=== PATIENT | female | born 1995 | race Caucasian/White ===

== ENCOUNTER 2017-09-23 05:31 | Inpatient (IN) ==
--- OUTSIDE RECORDS SUMMARY | 2017-09-23 06:13 | External Medical Summary | Clinical Summary ---
:1995 Author Organization [facility] Address [address] [address] Care Team Providers Name Role Phone Lizbet Oreilly Benson Primary Care Provider [facility] Unavailable Allergies Active Allergy Reactions Severity Noted Date Comments Latex Hives 08/09/2014 Latex Rash Low 06/25/2016 Tenino Hives 08/09/2014 Tenino Hives, Anxiety Medium 06/25/2016 Hydrocodone-Acetaminophen Hives 08/09/2014 Hydrocodone-Acetaminophen Nausea Only Low 06/25/2016 Other Hives 08/09/2014 Grapes/raisins Oxycodone Hives 08/09/2014 Penicillin V Hives 08/09/2014 Penicillins Nausea And Vomiting Low 06/25/2016 Oxycodone-Acetaminophen Hives 08/09/2014 Citrullus Vulgaris Hives 03/15/2015 Sertraline Hives 08/09/2014 Sertraline Hives, Anxiety Medium 06/25/2016 Current Medications Prescription Sig. Disp. Refills Start Date End Date Status levETIRAcetam (KEPPRA) Take 1,000 mg by Active 1000 MG mouth 2 (two) times tabletIndications: daily. Indications: Seizure Prophylaxis Prevention of following Subarachnoid Seizures After Bleed Hemorrhage in Brain multivitamin Take 1 tablet by Active ( PLUS) 27-1 MG mouth daily. TABSIndications: Indications: folic acid (FOLVITE) 1 Take 1 mg by mouth 08/22/2016 Active MG tabletIndications: daily. Indications: Vit-Fe Take 1 tablet by 08/22/2016 Active Rht-DW-Xibzd ( mouth daily. MULTI +DHA) [id number] Indications: MG CAPSIndications: polyethylene glycol Take 17 g by mouth 2 08/22/2016 Active (GLYCOLAX) (two) times daily. powderIndications: Indications: Constipation Constipation gabapentin (NEURONTIN) Take 100 mg by mouth 08/16/2016 Active 100 MG daily. Indications: capsuleIndications: Simple Seizure Partial Epilepsy levETIRAcetam (KEPPRA) 1,000 mg 2 (two) 06/29/2016 Active 1000 MG times daily. tabletIndications: Indications: Myoclonic Seizures Muscular Spasm or Twitch occurring with Seizures REFRESH PLUS 0.5 % 2 drops 2 (two) 08/19/2016 Active ophthalmic times daily as solutionIndications: Eye needed. Irritation Indications: Irritation of the Eye FLUoxetine (PROZAC) 20 Take 20 mg by mouth Active MG capsuleIndications: daily. Indications: Depression Depression Cholecalciferol (VITAMIN Take 1 capsule by Active D3) 2000 units mouth 2 (two) times CAPSIndications: Vitamin daily. Indications: D Deficiency Vitamin D Deficiency aspirin 81 MG chewable 10/04/2016 Active tablet Active Problems Patient Care Coordination Note GBS Negative Problem Noted Date premature rupture of membranes (PPROM) delivered, current 02/01/2017 hospitalization 01/23/2017 Epilepsy ([facility]) 01/23/2017 Overview: Radha, has seen Dr. Cervantes in the past during admit 06/2016 H/O pre-eclampsia in prior , currently , third trimester Overview: ASA 81 mg daily this H/O gestational diabetes in prior , currently , third 2016 trimester H/O delivery, currently , third trimester 01/23/2017 Overview: Per M notes, 37 wga, spontaneous labor, preeclampsia, used 17-OHP this --since d/c'd d/t local injection site reaction per [facility] Vaginal bleeding in , third trimester 01/23/2017 Seizure disorder during , first trimester ([facility]) 09/11/2016 Dysuria during in first trimester 09/11/2016 Hx of preeclampsia, prior , currently , first trimester 09/11 History of gestational diabetes in prior , currently , 2016 first trimester Seizure ([facility]) 06/25/2016 Bipolar 1 disorder ([facility]) 06/25/2016 Depression 01/28/2015 Bipolar 1 disorder ([facility]) 10/23/2014 Mood disorder ([facility]) 10/23/2014 premature rupture of membranes with onset of labor more than 24 hours following rupture Resolved Problems Problem Noted Date Resolved Date Self-inflicted injury 01/28/2015 01/31/2015 Suicide attempt ([facility]) 10/23/2014 10/26/2014 Intentional acetaminophen overdose, initial encounter ([facility]) 10/22/20142016 Immunizations Name Dates Previously Given Next Due Influenza IIV3 PFree 01/01/2017 Family History Medical History Relation Name Comments Premature Daughter Diabetes Father Hypertension Father Diabetes Maternal Grandfather Heart disease Maternal Grandfather Hypertension Maternal Grandfather Hypertension Maternal Grandmother Diabetes Mother Diabetes Paternal Grandfather Heart disease Paternal Grandfather Hypertension Paternal Grandfather Diabetes Paternal Grandmother Hypertension Paternal Grandmother Relation Name Status Comments Daughter Alive Father Alive Maternal Grandfather Maternal Grandmother Mother Alive Paternal Grandfather Paternal Grandmother Social History Tobacco Use Types Packs/Day Years Used Date Never Smoker Smokeless Tobacco: Never Used Alcohol Use Drinks/Week oz/Week Comments Yes 3 times/week Sex Assigned at Date Recorded Not on file Last Filed Vital Signs Vital Sign Reading Time Taken Blood Pressure 107/81 02/03/2017 7:48 AM [employer]ING ASS[employer]IATE Pulse 85 02/03/2017 7:48 AM [employer]OUNTING ASSOCIATE Temperature 36.6 C (97.9 F) 02/03/2017 7:48 AM ACCOUNTING ASSOCIATE Respiratory Rate 16 02/03/2017 7:48 AM ACCOUNTING ASSOCIATE Oxygen Saturation 100% 02/03/2017 7:48 AM ACCOUNTING ASSOCIATE Inhaled Oxygen Concentration - - Weight 86.6 kg (190 lb 14.4 oz) 01/26/2017 5:38 AM ACCOUNTING ASSOCIATE Height 165.1 cm (5' 5") 01/23/2017 4:45 AM ACCOUNTING ASSOCIATE Body Mass Index 31.77 01/26/2017 5:38 AM ACCOUNTING ASSOCIATE Plan of Treatment Health Maintenance Due Date Last Done Comments HPV Vaccines (1 of 3 - Female 3-dose series) 2008 Varicella Vaccines (1 of 2 - 2-dose adolescent series) 2010 MenB Vaccine (Bexsero) (1 of 2) 2013 DTaP,Tdap,and Td Vaccines (1 - Tdap) 2016 Influenza Vaccine (#1) 2017 01/01/2017 Results Not on filefrom Last 3 Months
[2017-09-23] MEDS ORDERED: SALINE FLUSH 10ml SYRINGE IVF PRN (06:23)
[2017-09-23] MEDS ORDERED: NS 1,000 ML IV ONE ×2 (06:24→08:33)
--- NOTE | 2017-09-23 06:27 | Emergency Department Report ---
General Adult HPI - General Chief complaint: Fall Stated complaint: GENERAL SICKNESS Source: patient, family Mode of arrival: ambulatory Limitations: no limitations - History of Present Illness HPI narrative: 22 F presents to the emergency department with a chief complaint of not feeling well over the past couple of days while at [place]. Patient is complaining of nausea, vomiting, diarrhea along with generalized abdominal cramping and feeling like she is going from hot to cold. Patient also notes that last night she got up in the middle of the night to go to the bathroom and tripped over her service dog causing her to fall and strike the back of her head on a cabinet. She notes a posterior headache which is moderate in nature without radiation. She did not have any loss of bowel or bladder control, did not bite her tongue, until was not postictal following the fall. The fall was caused by a tripping injury. No other complaints or associated symptoms. She was at home when her symptoms began. Symptoms have been persistent in nature since onset. She has been noncompliant with her Keppra and gabapentin for the past week at least. - Related Data Home Medications Medication Instructions Recorded Confirmed Gabapentin 300 mg PO BID 09/23/17 09/23/17 levETIRAcetam [Keppra] 1,500 mg PO BID 09/23/17 09/23/17 Allergies Allergy/AdvReac Type Severity Reaction Status Date / Time hydrocodone Allergy Mild HIVES Verified 09/23/17 05:41 latex Allergy Unknown ITCHING Unverified 09/23/17 05:41 lithium Allergy Unknown Verified 09/23/17 05:41 Penicillins Allergy Unknown Verified 09/23/17 05:41 sertraline Allergy Unknown Verified 09/23/17 05:41 Review of Systems Constitutional: Reports: fever (subjective. ), chills Eyes: Denies: eye pain, vision change ENT: Reports: throat pain. Denies: ear pain Cardiovascular: Denies: chest pain, palpitations Respiratory: Denies: cough, dyspnea Gastrointestinal: Reports: nausea, vomiting, diarrhea. Denies: abdominal pain Genitourinary: Denies: urgency, dysuria Musculoskeletal: Denies: back pain, arthralgia Integumentary: Denies: erythema, rash Neurological: Reports: headache. Denies: numbness, paresthesias Psychiatric: Denies: anxiety, depression Endocrine: Denies: fatigue, polydipsia, polyuria Hematological/Lymphatic: Denies: easy bruising, lymphadenopathy Allergic/Immunologic: Denies: facial swelling, urticaria PFSH Patient Stated Medical History Heart Murmur Yes Other Musculoskeletal Yes: CARPAL TUNNEL Surgical History: Appendectomy, tonsillectomy Family History: Reviewed and Noncontributory. - Social History Smoking status: Unknown if ever smoked Physical Exam - Limitations Limitations: no limitations - General General appearance: alert, in no apparent distress - Normal Exams: Head:: Normocephalic without trauma Eyes:: Pupils are PERRLA w/ EOMI, No scleral icterus, irritation, or foreign bodies noted ENMT:: No facial trauma, nasal exudates, pharyngeal erythema, or exudates are noted Dental: No fractured, loose, or missing teeth noted Neck:: Full range of motion (no midline tenderness or deformity of the cervical spine. No Brudzinski or Kernig signs.), without adenopathy, JVD, bruits or thyromegaly Chest/Respirations:: Clear all miranda, with good airflow, and symmetry bilaterally Cardiovascular:: Regular rate and rhythm, without murmur or gallop, Pulses 2+ all extremities, capillary refill, <2 seconds all extremities Abdomen:: Bowel sounds positive, soft, non-tender, non-distended, no hepatosplenomegaly, masses or bruits noted Lymphatic:: No lymphadenopathy, or lymphedema noted Musculoskeletal:: No tenderness (no midline tenderness or deformity of the cervical/thoracic/lumbar spine. Pelvis stable to compression and nontender. ), or deformity noted, good range of motion, all extremities Integumentary:: No rashes, hives, or bruising noted, hair and nails, without abnormality Neurological:: Patient is alert, and oriented, cranial nerves, motor/sensory/ cerebellar, exams w/o gross deficits, to observation Psychiatric:: Patient exhibits, appropriate attention, emotion and affect Course Vital Signs Temperature 100.4 F 09/23/17 05:37 Pulse Rate 118 H 09/23/17 05:37 Respiratory Rate 20 09/23/17 05:37 Blood Pressure 122/68 09/23/17 05:37 Pulse Oximetry 98 09/23/17 05:37 Temperature 99.3 F 09/23/17 08:37 Pulse Rate 98 09/23/17 08:37 Respiratory Rate 20 09/23/17 05:37 Blood Pressure 115/65 09/23/17 09:00 Pulse Oximetry 96 09/23/17 06:30 Medical Decision Making - MDM Narrative Medical decision making narrative: Labs/imaging were discussed in detail with the patient and family and questions are answered. Patient was given 2 L of normal saline intravenously in the emergency department. She was given acetaminophen 1 g by mouth 1 with improvement of symptoms. Patient was given Azactam 1 g IV 1 in the emergency department. Patient was discussed with Dr. Tanner who agrees to accept the patient to his service for further evaluation and treatment. Patient is in agreement with the current plan of management. She is admitted to the service of the hospitalist in improved condition. No further orders from accepting physician who is in agreement with the current plan of management. Azactam was ordered at 0855 when sepsis was considered. Patient was never hypotensive in the emergency department and her lactic acid was less than 4. Due to patient's ALLERGIES and seizure history there was difficulty selecting appropriate antibiotic which is safe for patient this required pharmacy consultation. - Differential Diagnosis UTI, PNA, Metabolic disorder, Viral syndrome - Lab Data Result diagrams: 09/23/17 06:53 09/23/17 06:53 Lab Results 09/23/17 09/23/17 09/23/17 Range/Units 06:35 06:35 06:53 WBC 11.0 (4.5-11.0) T/MM3 RBC 5.14 (4.00-5.20) M/MM3 Hgb 14.0 (12-16) GM/DL Hct 41.9 (36-46) % MCV 81.5 (80-100) UM3 MCH 27.2 (26-34) UUG MCHC 33.4 (31-37) GM/DL RDW Std Deviation 38.9 (36.9-50.2) FL Plt Count 187 (130-400) T/MM3 MPV 11.5 (9.4-12.4) UM3 Immature Gran % (Auto) 0.2 (0.0-0.5) % Neut % (Auto) 82.8 H (33-66) % Lymph % (Auto) 11.4 L (23-45) % Darke % (Auto) 5.1 (0-9.0) % Eos % (Auto) 0.4 (0-4) % Baso % (Auto) 0.1 (0-2) % Neut # (Auto) 9.2 H (1.8-7.7) T/MM3 Lymph # (Auto) 1.3 (1-4.8) T/MM3 Darke # (Auto) 0.6 (0-0.8) T/MM3 Eos # (Auto) 0.0 (0-0.5) T/MM3 Baso # (Auto) 0.0 (0-0.2) T/MM3 Abs Immat Gran (auto) 0.02 (0.00-0.03) T/MM3 Turbidity (0-20) Sodium (136-146) MEQ/L Potassium (3.6-5) MEQ/L Chloride (98-107) MEQ/L Carbon Dioxide (22-30) MEQ/L Anion Gap (5-15) meq/L BUN (7-17) MG/DL Creatinine (0.7-1.2) mg/dL GFR Calculation BUN/Creatinine Ratio (6-26) RATIO Glucose (65-110) MG/DL Calculated Osmolality (261-280) MOSM/KG Calcium (8.4-10.2) MG/DL Total Bilirubin (0.20-1.30) MG/DL Icterus Index (0-7) AST (14-36) U/L ALT (1-35) U/L Alkaline Phosphatase (38-126) U/L Total Protein (6.3-8.2) g/dL Albumin (3.5-5.0) g/dL Globulin (2.4-3.6) G/DL Albumin/Globulin Ratio (1.1-2.2) RATIO Lipase (23-300) U/L Plasma Lactate (0.6-2.2) MMOL/L Specimen Hemolysis (0-25) Ur Collection Type Urine, void-cc/notcc Urine Color Yellow (YELLOW) Urine Clarity Clear Urine pH 6.5 (5.0-8.0) Ur Specific Stephens 1.010 L (1.015-1.025) Urine Protein Negative (NEGATIVE) Urine Glucose (UA) Negative (NEGATIVE) Urine Ketones Negative (NEGATIVE) Urine Occult Blood 1+ A (NEGATIVE) Urine Nitrate Positive A (NEGATIVE) Urine Bilirubin Negative (NEGATIVE) Urine Urobilinogen 0.2 (NORMAL) EU/DL Ur Leukocyte Esterase Negative (NEGATIVE) Urine RBC None seen (0-3) /HPF Urine WBC 0-1 (0-5) /HPF Ur Squamous Epith Cells 5-10 Urine Bacteria 4+ H (NEGATIVE) Ur Culture Indicated? Cult reflexed &setup Urine Test Negative (Negative) 09/23/17 Range/Units 06:53 WBC (4.5-11.0) T/MM3 RBC (4.00-5.20) M/MM3 Hgb (12-16) GM/DL Hct (36-46) % MCV (80-100) UM3 MCH (26-34) UUG MCHC (31-37) GM/DL RDW Std Deviation (36.9-50.2) FL Plt Count (130-400) T/MM3 MPV (9.4-12.4) UM3 Immature Gran % (Auto) (0.0-0.5) % Neut % (Auto) (33-66) % Lymph % (Auto) (23-45) % Darke % (Auto) (0-9.0) % Eos % (Auto) (0-4) % Baso % (Auto) (0-2) % Neut # (Auto) (1.8-7.7) T/MM3 Lymph # (Auto) (1-4.8) T/MM3 Darke # (Auto) (0-0.8) T/MM3 Eos # (Auto) (0-0.5) T/MM3 Baso # (Auto) (0-0.2) T/MM3 Abs Immat Gran (auto) (0.00-0.03) T/MM3 Turbidity < 20 (0-20) Sodium 143 (136-146) MEQ/L Potassium 3.8 (3.6-5) MEQ/L Chloride 106 (98-107) MEQ/L Carbon Dioxide 27 (22-30) MEQ/L Anion Gap 10 (5-15) meq/L BUN 10.0 (7-17) MG/DL Creatinine 0.7 (0.7-1.2) mg/dL GFR Calculation 107 BUN/Creatinine Ratio 14 (6-26) RATIO Glucose 90 (65-110) MG/DL Calculated Osmolality 274 (261-280) MOSM/KG Calcium 8.9 (8.4-10.2) MG/DL Total Bilirubin 0.60 (0.20-1.30) MG/DL Icterus Index < 2 (0-7) AST 18 (14-36) U/L ALT 21 (1-35) U/L Alkaline Phosphatase 99 (38-126) U/L Total Protein 7.7 (6.3-8.2) g/dL Albumin 4.5 (3.5-5.0) g/dL Globulin 3.2 (2.4-3.6) G/DL Albumin/Globulin Ratio 1.4 (1.1-2.2) RATIO Lipase 73 (23-300) U/L Plasma Lactate 1.1 (0.6-2.2) MMOL/L Specimen Hemolysis < 15 (0-25) Ur Collection Type Urine Color (YELLOW) Urine Clarity Urine pH (5.0-8.0) Ur Specific Stephens (1.015-1.025) Urine Protein (NEGATIVE) Urine Glucose (UA) (NEGATIVE) Urine Ketones (NEGATIVE) Urine Occult Blood (NEGATIVE) Urine Nitrate (NEGATIVE) Urine Bilirubin (NEGATIVE) Urine Urobilinogen (NORMAL) EU/DL Ur Leukocyte Esterase (NEGATIVE) Urine RBC (0-3) /HPF Urine WBC (0-5) /HPF Ur Squamous Epith Cells Urine Bacteria (NEGATIVE) Ur Culture Indicated? Urine Test (Negative) - Radiology Data CXR - No acute processes. - EKG Data EKG #1 EKG results narrative: Sinus Tachycardia. 127 bpm. No STEMI. Disposition Clinical Impression: UTI (urinary tract infection) Qualifiers: Urinary tract infection type: acute cystitis Hematuria presence: without hematuria Qualified Code(s): N30.00 - Acute cystitis without hematuria Disposition: 02 To [facility] [place] Acute Care Condition: Improved Time of Disposition: 08:30 (Admit. Dr. Tanner.) - Seen By: physician
[2017-09-23] MEDS: ACETAMINOPHEN 500 MG TABLET PO SCH (06:33)
[2017-09-23] MEDS ORDERED: LEVETIRACETAM INJ 1,000 MG in NS 100 ML IV ONE (06:41)
--- NOTE | 2017-09-23 08:07 | XRay Report ---
Indication: fever, with seizures and tachycardia PROCEDURE: XR chest 1V: Encounter: Initial Comparison: None. Findings: Heart size is normal. The lungs are clear. There is no focal opacity to suggest atelectasis or pneumonia. No mediastinal or hilar adenopathy. No pleural effusion. There is no significant tortuosity of the descending thoracic aorta. There is no significant degenerative disc disease of the thoracic spine. IMPRESSION: No acute process. .
--- NOTE | 2017-09-23 08:22 | CT Scan Report ---
Indication: CHI, Fall PROCEDURE: CT head/brain wo con: Encounter: Initial Comparison: None Technique: Axial CT images through the head were performed without contrast. Iterative Reconstruction dose reducing technique was utilized. FINDINGS: The ventricles are of normal size, shape, and contour for the patient's age. The brainstem, cerebellum, and cerebral hemispheres have a normal morphology and CT attenuation. There is no evidence of midline displacement. No hemorrhage, signs of acute territorial stroke, mass effect, mass lesions, or edema is evident. The visualized portions of the skull base, midface, and calvarium demonstrate no abnormality. The paranasal sinuses are well aerated and free of significant disease. The tympanic and mastoid cavities appear normal. IMPRESSION: No acute intracranial abnormality or hemorrhage. .
[2017-09-23] MEDS ORDERED: AZTREONAM 1 G in NS 100 ML IV ONE (08:45)
[2017-09-23 09:31] VITALS: BMI 35.9
[2017-09-23] MEDS ORDERED: HYDROMORPHONE 2 MG/ML INJECTION IVP PRN (09:36)
[2017-09-23] MEDS ORDERED: ONDANSETRON 4 MG/2 ML INJECTION IVP PRN (09:36)
--- NOTE | 2017-09-23 10:15 | History & Physical Report ---
History of Present Illness Date: 09/23/17 (PCP: None) Chief complaint: Seizure, Fever, Abdominal pain HPI: - History of Present Illness-ED: HPI narrative: 22 F presents to the emergency department with a chief complaint of not feeling well over the past couple of days while at [place]. Patient is complaining of nausea, vomiting, diarrhea along with generalized abdominal cramping and feeling like she is going from hot to cold. Patient also notes that last night she got up in the middle of the night to go to the bathroom and tripped over her service dog causing her to fall and strike the back of her head on a cabinet. She notes a posterior headache which is moderate in nature without radiation. She did not have any loss of bowel or bladder control, did not bite her tongue, until was not postictal following the fall. The fall was caused by a tripping injury. No other complaints or associated symptoms. She was at home when her symptoms began. Symptoms have been persistent in nature since onset. She has been noncompliant with her Keppra and gabapentin for the past week at least. Hospitalist HPI: Jana is a pleasant 22 yo female who presents to the ED today with above mentioned complaints. She is somnolent upon my arrival to the room, and was noted to have O2 sats of 89% on RA. She did easily awaken and was able to give a fairly accurate history. She has a history of seizures, onset about 2 years ago when with her first child. She reports that she fell down the stairs when . Her water did break early @ 28 weeks, and she had to be hospitalized until she delivered @ 34 weeks. She has previously been on Dilantin, but that was changed to Keppra when she was found to be . She reports that she does not feel that she is tolerating the Keppra well. She has persistent ELLISON, so she has opted not to take the Keppra x the last 2 weeks. She has been seeing Dr. Naidu for neurology in the [facility] area, but has recently moved to [place] and needs to establish with a neurologist here. CT done in the ER was found to be negative. Incidentally, she does report some issues with her c-spine. She has bilateral hand numbness, and is to wear a back brace and arm braces at home. She states she may need surgery at some point. She is unclear what area of neck/ back is affected. In other concerns, she reports RUQ pain with radiation into her back. She was found to have a fever, with concern for developing sepsis upon her admission in the ER. She reports history of urethral stricture and both she and her family report that she has verbalized feeling as if she cannot urinate well for several weeks. In addition, she frequently has symptoms a UTI, urinary frequency , and feelings of incomplete emptying. She has been nauseated, and reports epigastric pain and GI upset when taking PO. States she has not eaten in 2 days due to these c/o. While in the ER she remains fairly hypotensive despite fluid boluses. HR is 115- 120. ER nurse reports patient was quite hypertensive with HR into the 140-160 range upon admission. D/W RN. D/W Dr. Valencia. D/W Dr. Tanner. Due to patients borderline hemodynamic status, she is being admitted to ICU for closer observation and treatment. Review of Systems All systems PM: 10-point ROS was reviewed, no additional remarkable complaints except - Constitutional Constitutional: Present: chills, fatigue, fever(s), headache(s), lethargy, malaise, weakness - Cardiovascular Cardiovascular: Present: heart murmur. Absent: chest pain, dyspnea on exertion , orthopnea Vascular: Absent: pedal edema, unilateral swelling - Respiratory Respiratory: Absent: cough, dyspnea, dyspnea on exertion - Gastrointestinal Gastrointestinal: Present: abdominal pain, change in bowel habits, diarrhea, dyspepsia, early satiety, nausea - Genitourinary Menstruation: currently menstrual Genitourinary Comments: IUD in place- would like removed. She is worried it has moved. - Musculoskeletal Musculoskeletal: Present: back pain (Right flank pain), myalgias - Neurological Neurological: Present: convulsions, headache(s), lack of coordination, paresthesias (Bilateral hands, worse at night. 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 Asthma. ADD with drug OD. Gastritis. Urinary rentention ( [place]). -Chronic Trigonitis. -Urethral Stenosis. -Mild-mod Bladder Trabeculation. Possible cervical spine stenosis Surgical History: Appendectomy, tonsillectomy, Urological surgery (as above) Family History: DM2 Family History: As Above - Social History Smoking status: Never smoker Substance use type: unknown Household members: spouse, children (ages 18 mo and 7 mo) Current residence: Apartment/Private Home Medications Home Medications Medication Instructions Recorded Confirmed Type Gabapentin 300 mg PO BID 09/23/17 09/23/17 History levETIRAcetam [Keppra] 1,500 mg PO BID 09/23/17 09/23/17 History Allergies Allergy/AdvReac Type Severity Reaction Status Date / Time hydrocodone Allergy Mild HIVES Verified 09/23/17 05:41 latex Allergy Unknown ITCHING Unverified 09/23/17 05:41 lithium Allergy Unknown Verified 09/23/17 05:41 Penicillins Allergy Unknown Verified 09/23/17 05:41 sertraline Allergy Unknown Verified 09/23/17 05:41 Exam Vital Signs: Temperature 99.3 F 09/23/17 08:37 Pulse Rate 98 09/23/17 08:37 Respiratory Rate 20 09/23/17 05:37 Blood Pressure 115/65 09/23/17 09:00 Pulse Oximetry 96 09/23/17 06:30 Telemetry Rhythm: Sinus Tachycardia Height/Weight/BMI: Height 1.65 m Weight 97.8 kg Body Mass Index 35.9 - Constitutional Present: cooperative, somnolent - Routine HEENT Exam Head: Present: normocephalic, atraumatic Eye: Present: PERRL ENT: Present: mucous membranes dry Comments: Mild dysconjugate gaze when relaxed. - Routine Neck Exam Present: supple, trachea midline. Absent: JVD, swelling - Routine Chest/Breast/Axilla Exam Chest wall: Absent: tenderness - Routine Respiratory Exam Present: CTA bilaterally. Absent: accessory muscle use, dyspnea, rales, respiratory distress, rhonchi, wheezes - Routine Cardiovascular Exam Present: RRR, S1, S2, no murmur, tachycardia - Routine Abdominal Exam Present: soft, tenderness (RUQ), non distended. Absent: firm, rigid, mass - Routine Exam Comments: Right CVA tenderness to touch. - Routine Extremities Exam Present: no edema, non tender - Routine Skin Exam Present: intact, dry, warm - Routine Neurological Exam Present: moving all extremities. Absent: sensory deficit, motor deficit, facial asymmetry - Routine Psychiatric Exam Present: cooperative Results - Labs CBC & Chem 7: 09/23/17 06:53 09/23/17 06:53 Microbiology Results: Microbiology 09/23/17 07:10 Peripheral/Iv Start Gram Stain - Final Not performed 09/23/17 06:54 Peripheral/Iv Start Gram Stain - Final Not performed 09/23/17 06:35 Urine, Voided (Cc/notcc) Urine Culture - Preliminary Culture Initiated - Results Pending - Imaging and Cardiology Chest x-ray Additional comments: Negative. CT scan - head Additional comments: Normal Assessment and Plan Assessment and Plan: 22 yo WF with: 1. Severe sepsis 2. Presumed pyelonephritis 3. Hx of urinary retention with ureteral stricture 4. Sz. DO with poor medication compliance 5. Persistent ELLISON 6. Epigastric pain with h/o gastritis 7. Possible C-Spine stenosis Plan: Will admit Inpatient, ICU as expected stay is to exceed 2 midnights. Supportive care per sepsis guidelines- use LR to reduce risk of metabolic acidosis. Repeat lactate this afternoon. Use Azactam due to PCN allergy. Avoid Quinolone due to active sz. BC, UC pending. Will consult Dr. Villegas to R/O urinary retention. Check CT A/P. Check bladder scan, cath if needed. Suspect urinary retention may be cause of recurrent UTI and subsequent pyelonephritis. PRN pain medication. PRN antiemetics. Continue Keppra for now- resume Keppra and Gabapentin. She was loaded with 1000 mg of Keppra in the ER. Consult Dr. Mason to establish care and possible adjust sz. meds due to ELLISON with Keppra. I D/W him. PRN pain meds for ELLISON right now. Pt is somnolent, likely postictal, but will check UDS due to past hx of drug OD. Will add PPI due to epigastric discomfort, GI upset. Diet as tolerated. Hx of C-spine stenosis- we may need to consider C-spine imaging, but she currently not having any focal weakness or new symptoms, so will monitor for now. She reports she has IUD in, which she would like removed. Outpatient referral to [facility] upon discharge. GI px: LMWH Code Status: Full DVT Prophylaxis: Lovenox GI Prophylaxis: Protonix Resuscitation Status: Full Code - Physician Narrative Physician: Andres Tanner MD Narrative: Date: 09/23/17 Time: 958 I have independently interviewed and examined patient at bedside. Patient chart reviewed. Case discussed with my WHE[employer] P[employer] INSPECTOR. Care plan developed with my supervision, agree with above. A pleasant 22-year-old female patient presented to emergency room with history of seizures diagnosed 2 years ago during , prescribed to be on Keppra medication however has been off Keppra medication for the past 2 weeks, with complaints of fever, abdominal pain, chills. Symptoms associated with nausea, vomiting. Patient reports bilateral flank pain, more on the right side along with generalized abdominal pain. Patient also has a history of urethral stricture with reported history of inability to void satisfactorily over the past few weeks. Urinalysis performed in the emergency room concerning for UTI. Culture and sensitivity results awaited. Patient was tachycardic, hypotensive in the emergency room and will be admitted to ICU for further close monitoring. Physical exam: General: Drowsy, easily arousable, oriented x3. In moderate painful distress. Head: Pupils equal, round, reactive to light and accommodation. Extraocular movements intact. Neck: No elevation in JVP. No pharyngeal erythema noted. Chest: The patient does not use accessory muscles for breathing. Lungs: Breath sounds audible on auscultation bilateral lung miranda. No wheezing , no rhonchi, no crepitations, no crackles. No pleural rub. CVS: S1, S2 heard on auscultation. Tachycardic. No murmur, no S3/S4 gallops. Abdomen: Soft, tenderness to palpation noted in the epigastrium, right upper quadrant. No rebound, no guarding. Bowel sounds appreciated on auscultation. : Positive right-sided flank tenderness. Skin: No rashes, no induration, no erythema. Capillary refill less than 4 seconds. Extremities: No evidence of pedal edema bilateral lower extremities. No calf tenderness bilaterally. Palpable dorsalis pedis and posterior tibial pulses bilateral lower extremities. Data: WBC count 11,000, with left shift. Lactic acid 1.11.5. Urinalysis positive nitrites, 4+ bacteria, urine test negative. Urine culture results awaited. Urine toxicology screen negative. CT scan of abdomen and pelvis without contrast Impression:No evidence for infectious or inflammatory process. No evidence for mass lesion or adenopathy. No nephrolithiasis or evidence for obstructing ureteral calculus. No evidence for obstruction or free air. Assessment: Severe sepsis, likely secondary to urinary tract infection. History of seizures, off Keppra medication for the past 2 weeks. History of urethral stricture with urinary retention. Intermittent headache. Plan: Patient admitted to ICU under hospitalist service. Neurology consulted, case discussed with Dr. Mason and recommendation for patient to be on Keppra 500 mg twice a day for the next 2 days and thereafter increased to 1000 mg twice a day on discharge. Dr. Mason wants to follow up patient in 2 weeks after discharge. Urologist, Dr. Villegas will be consulted. CT scan abdomen and pelvis without contrast does not show any evidence suggestive of pyelonephritis. Continue IV aztreonam, considering patient's allergy profile. Awaiting blood culture, urine culture results. Sepsis Assessment - Evaluation SIRS Criteria: temperature > 100.9, pulse > 90 beats/minute Severe Sepsis: hypotension (SBP <90 or MAP <65 x2 readings) Hospital Course Summary Disclaimer: The visit summary below is not to be considered part of the above Progress Note. Hospital Course: 22 yo WF with: 1. Severe sepsis 2. Presumed pyelonephritis 3. Hx of urinary retention with ureteral stricture 4. Sz. DO with poor medication compliance 5. Persistent ELLISON 6. Epigastric pain with h/o gastritis 7. Possible C-Spine stenosis Plan: Will admit Inpatient, ICU as expected stay is to exceed 2 midnights. Supportive care per sepsis guidelines- use LR to reduce risk of metabolic acidosis. Repeat lactate this afternoon. Use Azactam due to PCN allergy. Avoid Quinolone due to active sz. BC, UC pending. Will consult Dr. Villegas to R/O urinary retention. Check CT A/P. Check bladder scan, cath if needed. Suspect urinary retention may be cause of recurrent UTI and subsequent pyelonephritis. PRN pain medication. PRN antiemetics. Continue Keppra for now- resume Keppra and Gabapentin. She was loaded with 1000 mg of Keppra in the ER. Consult Dr. Mason to establish care and possible adjust sz. meds due to ELLISON with Keppra. I D/W him. PRN pain meds for ELLISON right now. Pt is somnolent, likely postictal, but will check UDS due to past hx of drug OD. Will add PPI due to epigastric discomfort, GI upset. Diet as tolerated. Hx of C-spine stenosis- we may need to consider C-spine imaging, but she currently not having any focal weakness or new symptoms, so will monitor for now. She reports she has IUD in, which she would like removed. Outpatient referral to [facility] upon discharge. GI px: LMWH Code Status: Full
--- NOTE | 2017-09-23 10:40 | CT Scan Report ---
Indication: pyelonephritis PROCEDURE: CT abdomen pelvis wo con: Encounter: Initial Comparison: None. Findings: The included portions of the lung bases are clear. Heart size normal. No pleural effusion. No pericardial effusion. Liver is homogeneous and normal in contour. Spleen is normal in size. Adrenal glands are normal. Kidneys are symmetric in size without hydronephrosis or perinephric collection. No definite obstructing ureteral calculus. Gallbladder is thin-walled and nondistended without definite stones. Pancreas is homogeneous and uniform in density. Abdominal aorta is nonaneurysmal. No retroperitoneal or mesenteric adenopathy. No bowel distention or bowel wall thickening. Pelvis: No definite distal ureteral obstructing calculus. A normal appendix is not identified with certainty. The uterus is retroverted and tilted slightly to the left. No definite adnexal abnormality. No free fluid or pelvic sidewall adenopathy. There is mild distal colonic diverticulosis without evidence of diverticulitis. Impression:No evidence for infectious or inflammatory process. No evidence for mass lesion or adenopathy. No nephrolithiasis or evidence for obstructing ureteral calculus. No evidence for obstruction or free air. .
[2017-09-23] MEDS: ENOXAPARIN 40 MG/0.4 ML INJECTION SQ SCH (10:41)
[2017-09-23] MEDS: LR 1,000 ML IV SCH ×2 (10:41→19:04)
[2017-09-23] MEDS: PANTOPRAZOLE 40 MG INJECTION IVP SCH (10:42)
[2017-09-23] MEDS: ACETAMINOPHEN 325 MG TABLET PO PRN ×2 (12:21→17:24)
--- NOTE | 2017-09-23 14:28 | Consultation ---
DATE OF CONSULTATION 09/23/[address] Tanner PATIENT'S CHIEF COMPLAINT Seizure. HISTORY OF PRESENT ILLNESS Patient is a 22-year-old female with history of seizure disorder for the past two years. The patient has been taking Keppra 1500 mg p.o. b.i.d. for her seizures. It has been well controlled until recently. Patient presented to [facility] earlier this morning with an episode of seizure-like activity during which she became unresponsive with staring gaze and little shivering movements. Patient was feeling sick overnight. She was having some shivering problem and cold sweat which was later found to be related to a UTI. Patient said that she was walking in the dark and she tripped over her dog and fell to the ground. She became unresponsive for a few seconds. She then felt weak all over and she was asking for help. She was found by her grandfather, slightly confused and having some staring problem. She was then brought to the emergency room and was admitted to the hospital. She had a CT of the head on admission that showed no acute abnormalities. Her lab work revealed evidence of UTI and she has been treated for that since then. The patient's condition has been improving since admission. She had no new seizures and no loss of consciousness or confusion. She has had no focal weakness or numbness. The patient said that she ran out of her Keppra about two weeks ago and she was not having any problem with that. Patient's seizure disorder started two years ago with her having a general generalized tonic-clonic type seizure activity. She was initially given Dilantin and this was later changed to Keppra due to . The patient reports having some mild fatigue and drowsiness on the Keppra. Her dosage was increased to 1500 mg p.o. b.i.d. to improve control. PHYSICAL EXAMINATION On physical examination the patient was awake, alert, oriented x3. Pupils were round, reactive and equal. Extraocular muscles were intact. Visual field was full. Speech was fluent. Motor examination was 5-/5. Sensory examination was symmetrical to light touch and pinprick. Deep tendon reflexes were 2-/4. Plantar reflexes were in flexion bilaterally. Coordination for [id number] was normal bilaterally. ASSESSMENT Complex partial seizure controlled with Keppra. PLAN 1. Restart Keppra at 500 mg p.o. b.i.d. for a couple of days, then increase it to 1000 mg p.o. b.i.d. to improve tolerance. This can be increased further up to 1500 mg p.o. b.i.d. if needed for seizure control. 2. Improve fluid intake and continue treatment for the UTI until symptoms are relieved. 3. Patient can follow up with Dr. Mason in 2-3 weeks for further treatment for of her seizure problem. MTDD
[2017-09-23] MEDS: AZTREONAM 1 G in NS 100 ML IV SCH ×2 (15:04→20:31)
[2017-09-23] MEDS: Oxycodone/Acetaminophen 5/325 1 TAB PO PRN ×2 (16:31→20:32)
[2017-09-23] MEDS: GABAPENTIN 300 MG CAPSULE PO SCH (20:32)
[2017-09-23] MEDS: LEVETIRACETAM 500 MG TABLET PO SCH (20:33)
[2017-09-23] MEDS ORDERED: LEVETIRACETAM 500 MG TABLET PO SCH (21:00)
[2017-09-24] MEDS: ACETAMINOPHEN 325 MG TABLET PO PRN ×2 (00:22→13:58)
[2017-09-24] MEDS: LR 1,000 ML IV SCH ×2 (02:35→16:29)
[2017-09-24] MEDS: AZTREONAM 1 G in NS 100 ML IV SCH ×4 (02:36→21:47)
[2017-09-24] MEDS: IBUPROFEN 600 MG TABLET PO PRN ×2 (06:10→16:18)
[2017-09-24] MEDS: ACETAMINOPHEN 500 MG TABLET PO SCH (06:17)
[2017-09-24] MEDS: ENOXAPARIN 40 MG/0.4 ML INJECTION SQ SCH ×3 (08:35→12:26)
[2017-09-24] MEDS: PANTOPRAZOLE 40 MG INJECTION IVP SCH (08:36)
[2017-09-24] MEDS: GABAPENTIN 300 MG CAPSULE PO SCH ×2 (08:36→21:47)
[2017-09-24] MEDS: LEVETIRACETAM 500 MG TABLET PO SCH ×2 (08:37→21:47)
[2017-09-24] MEDS ORDERED: FALL RISK - PHARMACY CONSULT MC ONE (10:27)
[2017-09-24] MEDS: NS 1,000 ML IV SCH (13:45)
[2017-09-24] MEDS: Oxycodone/Acetaminophen 5/325 1 TAB PO PRN ×2 (13:58→19:57)
--- NOTE | 2017-09-24 14:35 | Consultation ---
DATE OF CONSULTATION 09/24/2017 REASON FOR CONSULTATION 1. Recurrent urinary tract infections. 2. History of urethral dilation. HISTORY OF PRESENT ILLNESS This is a 22-year-old female who was admitted yesterday to the hospital for possible urosepsis. She is currently in the ICU in stable condition. Per her mother, patient has a history of urethral dilatation when she was 11 years old. Also reports a history of recurrent urinary tract infections. She has been voiding spontaneously in the hospital with low PVRs. However, she urinates only once to twice a day. CT scan done on arrival was negative for pyelonephritis and negative for stones or hydronephrosis. REVIEW OF SYSTEMS CONSTITUTIONAL: Reports weakness and fatigue. Denies fever or chills. CARDIOVASCULAR: Denies chest pain, shortness of breath. RESPIRATORY: Denies cough, dyspnea. : Reports dysuria and frequent voiding. NEURO: Reports history of seizure. Denies any weakness. PAST MEDICAL HISTORY 1. Seizure. 2. Asthma. 3. History of urinary tract infections and urinary retention requiring dilations by Dr. Jaime. PAST SURGICAL HISTORY 1. Urethral dilation by Dr. Jaime in 2008. 2. Appendectomy. 3. Tonsillectomy. MEDS See medication reconciliation. PHYSICAL EXAMINATION VITAL SIGNS: Afebrile. Vital signs stable. GENERAL: No apparent distress. LUNGS: No respiratory distress ABDOMEN: Soft. EXTREMITIES: Moves all extremities x4. NEURO: Oriented x3. ASSESSMENT 1. 22-year-old female admitted for possible sepsis. 2. History of recurrent urinary tract infections. 3. History of urethral dilation by Dr. Jaime 10 years ago. PLAN Recommend timed void q. 4 hours and double voiding to empty the bladder all the way. Recommend increasing fluid intake to prevent recurrent urinary tract infections. Discussed with the mother that there is no scientific evidence to support urethral dilation in females to prevent recurrent urinary tract infections. In addition, patient is able to empty her bladder without problem. There are no stones on the CAT scan or hydronephrosis. There is no indication for any surgical intervention from a urology standpoint. Thank you for the consult. Please call for questions or concerns. SACHI
--- NOTE | 2017-09-24 17:00 | Progress Note ---
- Date 09/24/17 Subjective: Patient resting in bed at the time of interview. Patient's grandmother present at bedside. WBC count 9700. Patient has been afebrile since midnight, when she had a temperature of 103.1F. Nursing staff also reports that patient had temperature spike while she had covered herself under blankets. Patient reports subjectively, complains of right-sided abdominal and flank pain improved. Case discussed with urologist, Dr. Villegas, no active urological intervention at this time. Recommendation for timed void at home and increase fluid intake. Recommendation for Bactrim antibiotic on discharge. Discussed with patient about transferring from ICU to medical floor. Objective Vital signs: Temperature 97.8 F 09/24/17 15:55 Pulse Rate 82 09/24/17 15:55 Respiratory Rate 16 09/24/17 15:55 Blood Pressure 116/65 09/24/17 15:55 Pulse Oximetry 97 09/24/17 15:55 Height/Weight/BMI: Height 1.65 m Weight 100.2 kg Body Mass Index 35.9 - Additional findings Additional findings: General: Alert, awake, oriented x3. In mild distress. Head: Pupils equal, round, reactive to light and accommodation. Extraocular movements intact. Neck: No elevation in JVP. No pharyngeal erythema noted. Chest: The patient does not use accessory muscles for breathing. Lungs: Breath sounds audible on auscultation bilateral lung miranda. No wheezing , no rhonchi, no crepitations, no crackles. No pleural rub. CVS: S1, S2 heard on auscultation. Normal rate and rhythm. No murmur, no S3/S4 gallops. Abdomen: Soft, nontender, no distention. Bowel sounds appreciated on auscultation. : Negative flank tenderness bilaterally. Skin: No rashes, no induration, no erythema. Capillary refill less than 4 seconds. Extremities: No evidence of pedal edema bilateral lower extremities. No calf tenderness bilaterally. Palpable dorsalis pedis and posterior tibial pulses bilateral lower extremities. Results - Labs CBC & Chem 7: 09/24/17 04:04 09/24/17 04:04 Microbiology Results: Microbiology 09/23/17 06:35 Urine, Voided (Cc/notcc) Urine Culture - Preliminary Early growth 09/23/17 07:10 Peripheral/Iv Start Blood Culture - Preliminary No Growth After 1 Day 09/23/17 06:54 Peripheral/Iv Start Blood Culture - Preliminary No Growth After 1 Day - Impressions CT scan abdomen and pelvis without contrast performed 09/23/2017 Impression:No evidence for infectious or inflammatory process. No evidence for mass lesion or adenopathy. No nephrolithiasis or evidence for obstructing ureteral calculus. No evidence for obstruction or free air. Assessment and Plan (1) UTI (urinary tract infection) Current visit: Yes Status: Acute Assessment and Plan: Severe sepsis likely secondary to UTI, culture results awaited Hx of urinary retention with ureteral stricture History of seizure disorder, poor medication compliance Persistent ELLISON Epigastric pain with h/o gastritis, resolving Possible C-Spine stenosis Plan: Patient will be transferred from ICU to medical floor. We'll decrease the rate of IV fluids normal saline 100 mL per hour. Lactic acid within normal limits. Patient on IV aztreonam due to PCN allergy. Avoid Quinolone due to active seizures. Awaiting report of blood cultures, urine cultures. Case discussed with urologist, Dr. Villegas, no active urological interventions at this point. Recommendation for timed voiding at home at least every 4 hours on discharge and increase oral fluid intake. Antibiotic recommendation, oral Bactrim which has been initiated. CT scan of abdomen and pelvis does not show any evidence of pyelonephritis. Patient evaluated by Dr. Mason, recommendation to continue Keppra 500 mg by mouth twice a day for a total of 2 days and thereafter switched to 1000 mg by mouth twice a day from tomorrow. Orders were placed. PRN pain medication. PRN antiemetics. Will add PPI due to epigastric discomfort, GI upset. Diet as tolerated. Hx of C-spine stenosis- she currently not having any focal weakness, no tingling , numbness in upper extremities She reports she has IUD in, which she would like removed. Outpatient referral to [facility] upon discharge. DVT Prophylaxis: SCD's, Lovenox GI Prophylaxis: Protonix Resuscitation Status: Full Code - Physician Narrative Narrative: Date: 09/24/17 Time: 1656 Hospital Course Summary Disclaimer: The visit summary below is not to be considered part of the above Progress Note. Hospital Course: 09/23/2017 1. Severe sepsis 2. Presumed pyelonephritis 3. Hx of urinary retention with ureteral stricture 4. Sz. DO with poor medication compliance 5. Persistent ELLISON 6. Epigastric pain with h/o gastritis 7. Possible C-Spine stenosis Plan: Will admit Inpatient, ICU as expected stay is to exceed 2 midnights. Supportive care per sepsis guidelines- use LR to reduce risk of metabolic acidosis. Repeat lactate this afternoon. Use Azactam due to PCN allergy. Avoid Quinolone due to active sz. BC, UC pending. Will consult Dr. Villegas to R/O urinary retention. Check CT A/P. Check bladder scan, cath if needed. Suspect urinary retention may be cause of recurrent UTI and subsequent pyelonephritis. PRN pain medication. PRN antiemetics. Continue Keppra for now- resume Keppra and Gabapentin. She was loaded with 1000 mg of Keppra in the ER. Consult Dr. Mason to establish care and possible adjust sz. meds due to ELLISON with Keppra. I D/W him. PRN pain meds for ELLISON right now. Pt is somnolent, likely postictal, but will check UDS due to past hx of drug OD. Will add PPI due to epigastric discomfort, GI upset. Diet as tolerated. Hx of C-spine stenosis- we may need to consider C-spine imaging, but she currently not having any focal weakness or new symptoms, so will monitor for now. She reports she has IUD in, which she would like removed. Outpatient referral to [facility] upon discharge. GI px: LMWH Code Status: Full 09/24/2017 Patient will be transferred from ICU to medical floor. We'll decrease the rate of IV fluids normal saline 100 mL per hour. Lactic acid within normal limits. Use Azactam due to PCN allergy. Avoid Quinolone due to active sz. Awaiting report of blood cultures, urine cultures. Case discussed with urologist, Dr. Villegas, no active urological interventions at this point. Recommendation for timed voiding at home at least every 4 hours on discharge and increase oral fluid intake. CT scan of abdomen and pelvis does not show any evidence of pyelonephritis. Patient evaluated by Dr. Mason, recommendation to continue Keppra 500 mg by mouth twice a day for a total of 2 days and thereafter switched to 1000 mg by mouth twice a day from tomorrow. Orders were placed. PRN pain medication. PRN antiemetics. Will add PPI due to epigastric discomfort, GI upset. Diet as tolerated. Hx of C-spine stenosis- she currently not having any focal weakness, no tingling , numbness in upper extremities She reports she has IUD in, which she would like removed. Outpatient referral to [facility] upon discharge.
[2017-09-24] MEDS: SULFAMETHOXAZOLE/TMP 800 MG/160 MG DS TABLET PO SCH ×2 (21:47→22:03)
[2017-09-25] MEDS: Oxycodone/Acetaminophen 5/325 1 TAB PO PRN ×2 (02:41→08:13)
[2017-09-25] MEDS: ACETAMINOPHEN 325 MG TABLET PO PRN ×3 (02:42→14:09)
[2017-09-25] MEDS: AZTREONAM 1 G in NS 100 ML IV SCH ×2 (02:43→08:27)
[2017-09-25] MEDS: SALINE FLUSH 10ml SYRINGE IV PRN ×2 (02:43→08:12)
[2017-09-25] MEDS: NS 1,000 ML IV SCH ×2 (02:43→14:05)
[2017-09-25] MEDS: ACETAMINOPHEN 500 MG TABLET PO SCH (05:58)
[2017-09-25] MEDS: GABAPENTIN 300 MG CAPSULE PO SCH (08:12)
[2017-09-25] MEDS: ENOXAPARIN 40 MG/0.4 ML INJECTION SQ SCH (08:12)
[2017-09-25] MEDS: PANTOPRAZOLE 40 MG INJECTION IVP SCH (08:12)
[2017-09-25] MEDS: SULFAMETHOXAZOLE/TMP 800 MG/160 MG DS TABLET PO SCH ×2 (08:12→08:51)
[2017-09-25] MEDS ORDERED: POLYETHYL GLYCOL 3350 17gm PACKET PO SCH (09:00)
[2017-09-25] MEDS ORDERED: LEVETIRACETAM 500 MG TABLET PO SCH (09:00)
--- NOTE | 2017-09-25 10:44 | Discharge Summary ---
Discharge Information Date of admission: 09/23/17 08:47 Anticipated date of discharge: 09/25/17 Attending Physician: Vickie Deluna MD Primary care physician: Dr. Noble Joseph Consults: Consulting Provider: Misha Villegas Reason For Exam: Hx of urethral stricture Consulting Provider: Marisol Mason Reason For Exam: Seizure DO - Discharge Diagnosis (1) Severe sepsis Status: Resolved (2) Complex partial seizure disorder Status: Chronic Severe sepsis likely secondary to UTI, culture with mixed al - resolved Hx of urinary retention with ureteral stricture History of seizure disorder-partial complex with seizures [employer] Persistent ELLISON, lower back pain (chronic) Epigastric pain with h/o gastritis - resolved Possible C-Spine stenosis - Laboratory Labs: 09/25/17 04:42 09/25/17 04:42 Urine drug screen: Negative. Lactate x3: <2 - Microbiology Microbiology 09/23/17 06:35 Urine, Voided Urine Culture - Final Mixed Bacterial Al 09/23/17 07:10 Peripheral/Iv Start Blood Culture - Preliminary No Growth After 2 Days 09/23/17 06:54 Peripheral/Iv Start Blood Culture - Preliminary No Growth After 2 Days - Radiology Radiology: Date of Exam: 09/23/17 PROCEDURE: XR chest 1V: Findings: Heart size is normal. The lungs are clear. There is no focal opacity to suggest atelectasis or pneumonia. No mediastinal or hilar adenopathy. No pleural effusion. There is no significant tortuosity of the descending thoracic aorta. There is no significant degenerative disc disease of the thoracic spine. IMPRESSION: No acute process. = = = = = = = = = = = = = = = = = = = = = = = = = = = = = = = = = = = = = = = = = = = = = = = = = = = = = = = = = = = Date of Exam: 09/23/17 PROCEDURE: CT head/brain wo con: FINDINGS: The ventricles are of normal size, shape, and contour for the patient' s age. The brainstem, cerebellum, and cerebral hemispheres have a normal morphology and CT attenuation. There is no evidence of midline displacement. No hemorrhage, signs of acute territorial stroke, mass effect, mass lesions, or edema is evident. The visualized portions of the skull base, midface, and calvarium demonstrate no abnormality. The paranasal sinuses are well aerated and free of significant disease. The tympanic and mastoid cavities appear normal. IMPRESSION: No acute intracranial abnormality or hemorrhage. = = = = = = = = = = = = = = = = = = = = = = = = = = = = = = = = = = = = = = = = = = = = = = = = = = = = = = = = = = = Date of Exam: 09/23/17 PROCEDURE: CT abdomen pelvis wo con: Findings: The included portions of the lung bases are clear. Heart size normal. No pleural effusion. No pericardial effusion. Liver is homogeneous and normal in contour. Spleen is normal in size. Adrenal glands are normal. Kidneys are symmetric in size without hydronephrosis or perinephric collection. No definite obstructing ureteral calculus. Gallbladder is thin-walled and nondistended without definite stones. Pancreas is homogeneous and uniform in density. Abdominal aorta is nonaneurysmal. No retroperitoneal or mesenteric adenopathy. No bowel distention or bowel wall thickening. Pelvis: No definite distal ureteral obstructing calculus. A normal appendix is not identified with certainty. The uterus is retroverted and tilted slightly to the left. No definite adnexal abnormality. No free fluid or pelvic sidewall adenopathy. There is mild distal colonic diverticulosis without evidence of diverticulitis. Impression:No evidence for infectious or inflammatory process. No evidence for mass lesion or adenopathy. No nephrolithiasis or evidence for obstructing ureteral calculus. No evidence for obstruction or free air. History of Present Illness HPI: Jana is a pleasant 22 yo female who presents to the ED today with above mentioned complaints. She is somnolent upon my arrival to the room, and was noted to have O2 sats of 89% on RA. She did easily awaken and was able to give a fairly accurate history. She has a history of seizures, onset about 2 years ago when with her first child. She reports that she fell down the stairs when . Her water did break early @ 28 weeks, and she had to be hospitalized until she delivered @ 34 weeks. She has previously been on Dilantin, but that was changed to Keppra when she was found to be . She reports that she does not feel that she is tolerating the Keppra well. She has persistent ELLISON, so she has opted not to take the Keppra x the last 2 weeks. She has been seeing Dr. Naidu for neurology in the [facility] area, but has recently moved to [place] and needs to establish with a neurologist here. CT done in the ER was found to be negative. Incidentally, she does report some issues with her c-spine. She has bilateral hand numbness, and is to wear a back brace and arm braces at home. She states she may need surgery at some point. She is unclear what area of neck/ back is affected. In other concerns, she reports RUQ pain with radiation into her back. She was found to have a fever, with concern for developing sepsis upon her admission in the ER. She reports history of urethral stricture and both she and her family report that she has verbalized feeling as if she cannot urinate well for several weeks. In addition, she frequently has symptoms a UTI, urinary frequency , and feelings of incomplete emptying. She has been nauseated, and reports epigastric pain and GI upset when taking PO. States she has not eaten in 2 days due to these c/o. While in the ER she remains fairly hypotensive despite fluid boluses. HR is 115- 120. ER nurse reports patient was quite hypertensive with HR into the 140-160 range upon admission. D/W RN. D/W Dr. Valencia. D/W Dr. Tanner. Due to patients borderline hemodynamic status, she is being admitted to ICU for closer observation and treatment. Objective Vital signs: Temperature 97.8 F 09/25/17 08:55 Pulse Rate 53 L 09/25/17 07:44 Respiratory Rate 16 09/25/17 08:13 Blood Pressure 94/55 09/25/17 07:44 Pulse Oximetry 100 09/25/17 07:44 Height/Weight/BMI: Height 1.65 m Weight 87.7 kg Body Mass Index 35.9 - Constitutional Present: no acute distress, well nourished, well developed - Routine HEENT Exam Head: Present: normocephalic Eye: Present: PERRL. Absent: conjunctival icterus, scleral injection ENT: Present: mucous membranes moist, oropharynx clear - Routine Respiratory Exam Present: CTA bilaterally - Routine Cardiovascular Exam Present: RRR, S1, S2 - Routine Abdominal Exam Present: soft, normoactive bowel sounds, non distended, non tender - Routine Extremities Exam Present: no edema, pulses intact, normal capillary refill. Absent: calf tenderness - Routine Musculoskeletal Exam Musculoskeletal: Present: no clubbing or cyanosis, no joint swelling - Routine Skin Exam Present: intact, dry, warm - Routine Neurological Exam Present: alert, oriented X3, CN II-XII intact, moving all extremities, vision grossly intact, hearing grossly intact, normal speech. Absent: sensory deficit , motor deficit, altered mental status, facial asymmetry - Routine Psychiatric Exam Present: normal affect, normal thought process, cooperative Hospital Course This is a general summary of the patient's hospital course. For more details refer to the complete medical record. Hospital course: 09/23/17 Admitted to CCU. IVF provided d/t tachycardia and severe sepsis. Azactam was started for UTI (PCN allergy). B/c of seizure history, quinolones were avoided. She was given Keppra [address] Mason was consulted for her seizures. Dr. Villegas was consulted regarding history of urethral strictures. 09/24/17 Medically stable for transfer to the medical floor. IVF were reduced. Dr. Villegas recommended timed voiding at home at least every 4 hours on discharge and increase oral fluid intake. Procedures/surgeries were not indicated. Bactrim was started. Dr. Dean recommended to continue Keppra 500 mg by mouth twice a day for a total of 2 days and thereafter switched to 1000 mg by mouth twice a day. She was complaining of epigastric discomfort and PPI was added. 09/25/17 Much improved. Labs and vitals stable. Persistent headache, relieved with Percocet though no Rx provided at discharge since narcotics are not indicated for headaches and may lower seizure threshold. Urine culture grew mixed bacterial al. Rx for Bactrim DS 1 BID x 3 days, Keppra 1000 mg BID, and gabapentin 300 mg BID were provided at discharge. Recommend follow up with Dr. Mason for seizures. Patient plans to follow up with Dr. Joseph for primary care. She also may need further evaluation of cervical spine stenosis in outpatient setting. Finally, she requests for her IUD to be removed and she may follow up with [facility]. Time spent with patient: discharge greater than 30 minutes Resuscitation Status: Full Code Discharge Plan - Discharge Disposition Discharge Date: 09/25/17 Disposition: Discharged Home, Self-Care *Condition: Improved Reason For Visit (Visit label in EMR): Pyelonephritis, Sepsis - Discharge Medications *Discharge Medications: New Levetiracetam [Keppra] 1,000 mg PO BID #60 tab Sulfamethox/Tmp [Bactrim Ds] 1 tab PO BID #6 tab PEG 3350 17gm PACKET [Miralax] 17 gm PO DAILY 30 Days #1 packet Continue Gabapentin 300 mg PO BID #60 cap Discontinued levETIRAcetam [Keppra] 1,500 mg PO BID - Discharge Packet/Instructions *Diet: Regular. *Activity: No driving until cleared by Dr. Mason. *Pain Management/Treatment: You may take Tylenol or ibuprofen for pain. *Wound Care: N/A Additional Instructions: Dr. Villegas recommends timed voiding at home at least every 4 hours and to increase oral fluid intake. *Expected Signs/Symptoms: You might feel fatigued from your hospital stay. Please discuss your headaches and back pain with Dr. Joseph. *Notify Physician if: Fever, abdominal pain, urinary retention, burning with urination, dizziness, vomiting or diarrhea, or any new concerns. *During Business Hours Contact: Contact Dr. Joseph for general medical questions; Dr. Mason for seizure questions; and Dr. Villegas for urinary questions. *After Business Hours Contact: Contact the on-call provider for Dr. Joseph, Dr. Mason, or Dr. Villegas. *Pending Lab/Results: Follow up w/your PCP - Referrals/Follow Up *Referrals/Follow Up: Noble Joseph DO [Physician] - 1 Week Misha Villegas MD [Physician] - Marisol Mason MD [Physician] - 1 Month - Patient Handouts Patient Handouts: Urinary Tract Infection in Women (DC), Complications of Infection (GEN) - Dismissal Complete Discharge Instructions are:: Complete Physician Narrative - Narrative Physician: Vickie Deluna MD Attestation Narrative: Date: 09/25/17 Time: 1220 I have independently evaluated and examined this patient. I reviewed the chart, the patient's history, and the [employer]/PA's documented findings as above. We discussed and formulated the assessment and plan as above with additions as below: Vaishali was seen earlier today indicating she was fatigued due to use of Percocet earlier in complaining of chronic back pain. She is tolerated resumption of Keppra. Laboratory data throughout the hospitalization reviewed-results of urine culture noted; blood cultures negative. Afebrile for the past 24 hours. NAD, alert; respirations nonlabored with clear breath sounds; abdomen benign. In retrospect I wonder if seizure didn't trigger "sepsis" parameters identified on admission although UA was abnormal and patient is at high risk for UTIs based on voiding characteristics prior to admission. Partial complex seizures reported by Dr. Masno with confusion and staring when the patient was found by her grandfather immediately prior to assessment in the emergency room. Continue Bactrim for additional 2 days to complete 5 days therapy for possible UTI. Follow-up Dr. Mason as recorded. Establish with primary care (patient plans to see Dr. Joseph) for management of other chronic problems.
[2017-09-25 12:24] VITALS: BP 94/52; PULSE 93; RESP 16; TEMP 98; O2SAT 96
[2017-09-25] MEDS: IBUPROFEN 600 MG TABLET PO PRN (12:39)
== END 2017-09-25 14:45 | disposition home or self-care (01) | DRG 872 ==
LOC: ED 05:31 → EDHOLD 08:47 → SUATTDRO 08:47 → CCU 09:25 → MED 09-24 13:45
PROVIDERS: ADMIT Internal Medicine; ATTEND Internal Medicine